=== PATIENT | male | born 2000 | race Caucasian/White ===

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

== ENCOUNTER 2022-12-10 17:40 | Emergency (ER) | payer OTHER ==
[2022-12-10] MEDS ORDERED: LIDOCAINE 1% INJ 10MG/ML (30 ML VIAL-PF) SQ ONE (17:44)
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
[2022-12-10 18:20] VITALS: BP 144/82; PULSE 83; RESP 20; TEMP 98.5
== END 2022-12-10 18:18 | disposition home or self-care (01) ==
LOC: EC 17:40
DX: S61.412A Laceration without foreign body of left hand, initial encounter (principal); F12.90 Cannabis use, unspecified, uncomplicated; W26.8XXA Contact with other sharp object(s), not elsewhere classified, initial encounter
CPT/HCPCS: 12001; 99282; J2001